=== PATIENT | female | born 1955 | race Caucasian/White ===

== ENCOUNTER 2016-11-01 16:14 | Emergency (ER) | payer BC, MEDICARE ==
[~2016-11-01] VITALS: Ht 157.5 cm; Wt 83.5 kg
[2016-11-01 16:17] VITALS: Ht 157.5 cm; Wt 83.5 kg
[2016-11-01] MEDS ORDERED: CYCL-319 PO (17:19)
[2016-11-01] MEDS ORDERED: IBUP-1542 PO (17:19)
--- NOTE | 2016-11-01 17:29 | ERD ---
ER Documentation Chief Complaint Date/Time DATE: 11/01/16 TIME: 17:21 Chief Complaint Complains of back pain x 1 week HPI 61-year-old female complaining of left mid back pain. Patient stated that she had this pain for about 2 months, but the pain got worse last night. She was unable to sleep because of pain. Patient denies falls or heavy lifting. Denies any other injury. Patient has history of left knee pain, is wearing a brace in the left knee currently. ROS All systems reviewed and are negative except as per history of present illness. Medications Home Meds Active Scripts Acetaminophen* (Tylophen*) 500 Mg Capsule, 1 CAP PO Q6H Y for PAIN AND OR ELEVATED TEMP, #20 CAP Prov:TWAN MENDENHALL NP 11/01/16 Cyclobenzaprine Hcl* (Cyclobenzaprine Hcl*) 10 Mg Tablet, 10 MG PO TID, #15 TAB Prov:TWAN MENDENHALL NP 11/01/16 Discontinued Scripts Ibuprofen* (Motrin*) 600 Mg Tab, 600 MG PO Q8, #30 TAB Prov:TWAN MENDENHALL NP 11/01/16 Allergies Allergies: Coded Allergies: No Known Allergy (Unverified , 11/10/13) PMhx/Soc Hx Alcohol Use: No Hx Substance Use: No Physical Exam Vitals Vital Signs Date Time Temp Pulse Resp B/P Pulse Ox O2 Delivery O2 Flow Rate FiO2 11/01/16 16:17 98.0 69 20 123/60 96 Physical Exam General: Well-developed, well-nourished, conscious and coherent, in no distress Skin: Warm and dry without rash, good texture and turgor Head: Normocephalic without evidence of trauma Eyes: Sclera and conjunctivae normal; pupils equal, round, and reactive to light; extraocular movements are intact Chest: Normal AP diameter. Good expansion without retractions. Nontender. Lungs are clear to auscultate bilaterally with good tidal volume Heart: Regular rate and rhythm. No murmur, rub, or gallops heard Back: Without spinal or CVA tenderness. Left thoracic muscle spasm. Extremities: Full range of motion. Good strength bilaterally. No clubbing, cyanosis, or edema. Peripheral pulses are intact. Sensation intact Neuro: Alert and oriented 4, GCS 15. Cranial nerves grossly intact. Motor and sensory exams nonfocal. Moves all extremities. Speech clear. Gait normal Procedures/MDM Well-appearing 61-year-old female presented ED was left mid back pain. Patient does not have any midline spinal tenderness. I doubt spinal fracture, subluxation, or disc herniation. I doubt spinal epidural abscess, cauda equina syndrome. Patient does have muscle spasm on exam. I suspect the muscle spasm is secondary to her limping gait due to the knee pain. Patient appears well, stable for discharge and outpatient management. Medical decision making shared with patient and family. Education provided to patient and family. Patient and family expressed understanding of the plan. Medications on discharge: Tylenol, Flexeril. Follow-up: Primary care provider in 2-3 days or return to ED if worse. Disclaimer: Inadvertent spelling and grammatical errors are likely due to EHR/ dictation software use and do not reflect on the overall quality of patient care. Also, please note that the electronic time recorded on this note does not necessarily reflect the actual time of the patient encounter. Departure Diagnosis: Primary Impression: Back spasm Condition: Good Patient Instructions: Back Spasm, No Trauma [facility] Usted se grande hecho un examen mdico de control que le indica que no est en bernard condicin que requiera tratamiento urgente en el Departamento de Emergencia. Un estudio ms profundo y el tratamiento de marx condicin pueden esperar sin ningn riesgo hasta que usted sea atendida/o en el consultorio de marx mdico o bernard cl deisy. Es responsabilidad suya arreglar bernard hung para el seguimiento del maría. MANEJO DE CONDICIONES NO URGENTES EN EL FUTURO 1) Si usted tiene un mdico de atencin primaria: Usted debera llamar a marx mdico de atencin primaria antes de venir al departamento de emergencia. Despus de las horas de consultorio, marx doctor o marx asociado/a est disponible por telfono. El mdico o enfermero de karin en el servicio telefnico puede asesorarle por vivian medio para atender el problema, o maría contrario se puede programar bernard hung. 2) Si usted no tiene un mdico de atencin primaria: Llame al mdico o clnica de referencia que aparece abajo chance las horas de consultorio para hacer bernard hung para que le vean. CLINICAS: [facility] [phone] [facility] [phone] [facility] [phone] [place] [phone] [facility]. [place] [address] [phone] [facility] [phone] [address] Additional Instructions: Llame al doctor MAANA y marcela bernard HUNG PARA DENTRO DE 2-3 [place].Dgale a la secretaria que nosotros le instruimos hacer esta hung.Avise o llame si marx condicin se empeora antes de la hung. Regresa aqui si peor o no mejor. TWAN MENDENHALL NP Nov 01, 2016 17:29
[2016-11-01] MEDS ORDERED: ACET500C5 PO (17:42)
== END 2016-11-01 17:52 | disposition home or self-care (01) ==
LOC: FTE 16:14
DX: M62.830 Muscle spasm of back (principal)
CPT/HCPCS: 99283